=== PATIENT | male | born 1945 | race Caucasian/White ===

== ENCOUNTER 2017-08-12 22:08 | Observation (INO) | payer BC, MEDICARE ==
[~2017-08-12] VITALS: Ht 185.4 cm; Wt 104.4 kg
[2017-08-12] VITALS (8 sets, daily range): BP systolic 105–165; BP diastolic 65–95; PULSE 56–81; RESP 16; TEMP 98.2; O2SAT 99–100
[~2017-08-12 22:08] MED LIST: ALLO300T2 PO; APIX5TAB PO; ATOR20TA PO; DAPA5TAB PO; GLUCTAB PO; PANT20 PO; PIND5 PO
[2017-08-12] MEDS ORDERED: ATOR20TA15 PO (22:24)
[2017-08-12] MEDS ORDERED: PIND5 PO (22:24)
[2017-08-12] MEDS ORDERED: PANT20 PO (22:24)
[2017-08-12] MEDS ORDERED: ALLO300T2 PO (22:24)
[2017-08-12] MEDS ORDERED: DAPA1TAB PO (22:24)
[2017-08-12] MEDS ORDERED: APIX5TAB PO (22:24)
[2017-08-12] MEDS ORDERED: METF-382 PO (22:24)
[2017-08-12] MEDS ORDERED: SODIUM CHLORIDE 0.9% FLUSH 10 ML FLUSH IVF PRN (22:30)
[2017-08-12] MEDS: SODIUM CHLOR 0.9% 1000 ML INJ 1,000 ML IV SCH (22:30)
--- NOTE | 2017-08-12 22:34 | PD ---
HPI Chief Complaint: Chest Pain Time Seen by Provider: 22:22 Travel History International Travel<30 days: No Contact w/Intl Traveler<30days: No Traveled to known affect area: No History of Present Illness HPI 72-year-old male presents to the emergency department complaint of retrosternal chest pain radiating into his back for the past 1-1/2 hours. Patient has history of reflux esophagitis and used antacid without symptom relief. Symptoms began approximate 2 hours after eating [place]ian food. Patient denies known history of peptic ulcer disease gastritis pancreatitis or gallbladder disease. Patient does have history of atrial fibrillation and is prescribed Eliquis which he takes daily. Patient did not take aspirin prior to arrival to the emergency department. Patient is under the care of shotgun shell assembly machine adjuster Dr. Cobos. Patient had a cardiac catheterization 6 years ago that reportedly was normal and no significant coronary vessel disease. Patient's had no stress testing since that time. No prior history of retrosternal chest pain. Patient does note that chest pressure is worsened by taking a deep breath. At rest or taking shallow breaths chest pain is 5-6/10 intensity increases 8/10 intensity with deep breathing. Patient denies any shortness of breath sweats nausea vomiting or referred neck jaw back shoulder arm pain. Patient has had a CT of the abdomen pelvis in two years and denies any known aortic disease. Patient does have family history of heart disease with his father having heart attack and stents prior to passing away from cancer at age 58. Patient denies tobacco use. Patient does have history of diabetes and dyslipidemia denies known history of hypertension. PFSH Past Medical History Narrative Medical Atrial fibrillation on Eliquis, dyslipidemia diabetes GERD; family history CAD; no tobacco use; nursing notes reviewed Atrial Fibrillation: Yes Blood Disorders: No Cancer: No Cardiovascular Problems: Yes High Cholesterol: Yes Diabetes: Yes Diminished Hearing: No Endocrine: No Gastrointestinal Disorders: Yes GERD: Yes Genitourinary: No Headaches: Yes (CURRENT - ? DUE TO NITRO) Immune Disorder: No Inguinal Hernia: Yes (RT INGUINAL HERNIA) Implanted Vascular Access Dvce: No Musculoskeletal: No Neurologic: No Psychiatric: No Respiratory: No Integumentary: Yes (PSORIASIS) ?: Not Past Surgical History Abdominal Surgery: Yes (RT INGUINAL HERNIA) Other Surgery: Yes (and oriented) Social History Alcohol Use: Yes (occas) Tobacco Use: No Substance Use: No Allergies-Medications (Allergen,Severity, Reaction): Coded Allergies: No Known Allergies (Verified Allergy, Unknown, 08/13/17) Reported Meds & Prescriptions Reported Meds & Active Scripts Active Reported Pindolol 5 Mg Tab 5 Mg PO DAILY Protonix (Pantoprazole Sodium) 20 Mg Tab 20 Mg PO DAILY Metformin ER (Metformin HCl) 1,000 Mg Nikko 1,000 Mg PO DAILY With evening meal Farxiga (Dapagliflozin) 5 Mg Tab 5 Mg PO DAILY Atorvastatin (Atorvastatin Calcium) 20 Mg Tab 20 Mg PO HS Eliquis (Apixaban) 5 Mg Tab 5 Mg PO BID Allopurinol 300 Mg Tab 300 Mg PO DAILY Review of Systems Except as stated in HPI: all other systems reviewed are Neg General / Constitutional: No: Fever, Chills HENT: No: Congestion Cardiovascular: Positive: Chest Pain or Discomfort Respiratory: No: Cough, Shortness of Breath Gastrointestinal: No: Nausea, Vomiting, Abdominal Pain Genitourinary: No: Flank Pain Musculoskeletal: No: Myalgias, Arthralgias Skin: No Rash Neurologic: No: Weakness Psychiatric: No: Anxiety Hematologic/Lymphatic: No: Lymph Node Enlargement Physical Exam Narrative GENERAL: Well-developed well-nourished male no acute distress no respiratory distress SKIN: Warm and dry. HEAD: Normocephalic. EYES: No scleral icterus. No injection or drainage. NECK: Supple, trachea midline. No JVD or lymphadenopathy. CARDIOVASCULAR: Irregular rate and rhythm without murmurs, gallops, or rubs. RESPIRATORY: Breath sounds equal bilaterally. No accessory muscle use. GASTROINTESTINAL: Abdomen soft, non-tender, nondistended. MUSCULOSKELETAL: No cyanosis, or edema. BACK: Nontender without obvious deformity. No CVA tenderness. Data Data Last Documented VS Vital Signs Date Time Temp Pulse Resp B/P (MAP) Pulse Ox O2 Delivery O2 Flow Rate FiO2 08/13/17 02:06 74 16 106/69 (81) 99 Room Air 08/12/17 22:10 98.2 Orders Orders Electrocardiogram (08/12/17 22:22) Ckmb (Isoenzyme) Profile (08/12/17 22:22) Complete Blood Count With Diff (08/12/17 22:22) Comprehensive Metabolic Panel (08/12/17 22:22) Magnesium (Mg) (08/12/17 22:22) Prothrombin Time / Inr (Pt) (08/12/17 22:22) Act Partial Throm Time (Ptt) (08/12/17 22:22) Troponin I (08/12/17 22:22) Ecg Monitoring (08/12/17 22:22) Bilateral Bp Monitoring (08/12/17 22:22) Iv Access Insert/Monitor (08/12/17 22:22) Oximetry (08/12/17 22:22) Oxygen Administration (08/12/17 22:22) Sodium Chloride 0.9% Flush (Ns Flush) (08/12/17 22:30) Nitroglycerin Sl (Nitrostat Sl) (08/12/17 22:30) Chest, Pa & Lat (08/12/17 22:22) Sodium Chlor 0.9% 1000 Ml Inj (Ns 1000 M (08/12/17 22:30) CKMB (08/12/17 22:30) CKMB% (08/12/17 22:30) Cta Thor Abd Aorta W Iv C W3d (08/13/17 ) Iohexol 350 Inj (Omnipaque 350 Inj) (08/13/17 01:13) Troponin I (08/13/17 02:13) Ckmb (Isoenzyme) Profile (08/13/17 02:13) Electrocardiogram (08/13/17 ) Pantoprazole Inj (Protonix Inj) (08/13/17 02:15) Place In Observation (08/13/17 ) Vital Signs (Adult) Q4H (08/13/17 02:38) Activity Oob With Assistance (08/13/17 02:38) Bolt Labeler / Telemetry .CONTINUOUS (08/13/17 02:38) Diet Heart Healthy (08/13/17 Breakfast) Sodium Chloride 0.9% Flush (Ns Flush) (08/13/17 02:45) Sodium Chloride 0.9% Flush (Ns Flush) (08/13/17 09:00) Basic Metabolic Panel (Bmp) (08/14/17 06:00) Complete Blood Count With Diff (08/14/17 06:00) Creatine Kinase (Cpk) (08/13/17 04:30) Creatine Kinase (Cpk) (08/13/17 10:30) Troponin I (08/13/17 04:30) Troponin I (08/13/17 10:30) Electrocardiogram (08/13/17 04:30) Electrocardiogram (08/13/17 10:30) Pt Request For Service (08/13/17 02:38) Case Management Consult (08/13/17 02:38) Naloxone Inj (Narcan Inj) (08/13/17 02:45) Consult Cardiology (08/13/17 ) Admit Order (Ed Use Only) (08/13/17 ) Bolt Labeler / Telemetry GALILEA.Q8H (08/13/17 02:53) Activity Oob With Assistance (08/13/17 02:53) Notify Dr: Other (08/13/17 02:53) Labs Laboratory Tests Test 08/12/17 22:30 08/13/17 02:35 White Blood Count 13.1 TH/MM3 Red Blood Count 5.38 MIL/MM3 Hemoglobin 16.0 GM/DL Hematocrit 48.7 % Mean Corpuscular Volume 90.4 FL Mean Corpuscular Hemoglobin 29.8 PG Mean Corpuscular Hemoglobin Concent 32.9 % Red Cell Distribution Width 13.9 % Platelet Count 210 TH/MM3 Mean Platelet Volume 8.5 FL Neutrophils (%) (Auto) 63.4 % Lymphocytes (%) (Auto) 24.9 % Monocytes (%) (Auto) 8.5 % Eosinophils (%) (Auto) 2.2 % Basophils (%) (Auto) 1.0 % Neutrophils # (Auto) 8.3 TH/MM3 Lymphocytes # (Auto) 3.3 TH/MM3 Monocytes # (Auto) 1.1 TH/MM3 Eosinophils # (Auto) 0.3 TH/MM3 Basophils # (Auto) 0.1 TH/MM3 CBC Comment DIFF FINAL Differential Comment Prothrombin Time 10.8 SEC Prothromb Time International Ratio 1.1 RATIO Activated Partial Thromboplast Time 28.2 SEC Blood Urea Nitrogen 13 MG/DL Creatinine 0.94 MG/DL Random Glucose 104 MG/DL Total Protein 7.7 GM/DL Albumin 3.8 GM/DL Calcium Level 8.7 MG/DL Magnesium Level 1.9 MG/DL Alkaline Phosphatase 75 U/L Aspartate Amino Transf (AST/SGOT) 22 U/L Alanine Aminotransferase (ALT/SGPT) 27 U/L Total Bilirubin 0.4 MG/DL Sodium Level 139 MEQ/L Potassium Level 3.8 MEQ/L Chloride Level 103 MEQ/L Carbon Dioxide Level 28.9 MEQ/L Anion Gap 7 MEQ/L Estimat Glomerular Filtration Rate 79 ML/MIN Total Creatine Kinase 278 U/L Creatine Kinase MB 7.7 NG/ML Troponin I LESS THAN 0.02 NG/ML MDM Medical Decision Making Medical Screen Exam Complete: Yes Emergency Medical Condition: Yes Medical Record Reviewed: Yes Interpretation(s) Last Impressions Aorta CTA 08/13/17 0000 Signed Impressions: Service Date/Time: Sunday, August 13, 2017 00:33 - CONCLUSION: Negative CTA of the thoracic and abdominal aorta. Robert Ontiveros MD Chest X-Ray 08/12/172 Signed Impressions: Service Date/Time: Saturday, August 12, 2017 22:32 - CONCLUSION: 1. No active disease. Margarito Freedman MD CBC & BMP Diagram 08/12/17 22:30 Total Protein 7.7, Albumin 3.8, Calcium Level 8.7, Magnesium Level 1.9, Alkaline Phosphatase 75, Aspartate Amino Transf (AST/SGOT) 22, Alanine Aminotransferase (ALT/SGPT) 27, Total Bilirubin 0.4 EKG: Atrial fibrillation with controlled ventricular rate of [address] elevation nonspecific ST depression EKG #2: Atrial fibrillation rate [address] elevation injury pattern or ectopy noted Vital Signs Date Time Temp Pulse Resp B/P (MAP) Pulse Ox O2 Delivery O2 Flow Rate FiO2 08/13/17 02:06 74 16 106/69 (81) 99 Room Air 08/13/17 00:52 78 16 145/75 (98) 99 Room Air 08/12/17 23:35 79 16 109/69 (82) 105/66 (79) 08/12/17 23:32 79 16 129/70 (89) 99 Room Air 08/12/17 23:26 77 16 112/68 (83) 08/12/17 23:01 72 16 112/71 (85) 99 Room Air 08/12/17 22:48 56 16 120/65 (83) 99 Room Air 08/12/17 22:43 78 16 118/86 (97) 99 Room Air 08/12/17 22:20 81 99 Room Air 08/12/17 22:20 81 16 163/95 (117) 99 Room Air 148/94 (112) 08/12/17 22:10 98.2 81 16 165/93 (096) 100 Troponin I: Less than 0.02, not elevated CK: 278, not elevated CK-MB 7.7 elevated CK-MB percent 2.7% not elevated Differential Diagnosis Chest pain, ACS, MA, aortic dissection, esophageal spasm, biliary colic Narrative Course Patient placed on nurse monitoring with continuous pulse oximetry EKG performed shows atrial fibrillation without ST elevation a controlled ventricular rate; patient administered nitroglycerin; specimens collected and sent for resulting Patient administered sublingual nitroglycerin with minimal response given Zofran 4 mg IV and morphine sulfate 2 mg IV as well as 1 L normal saline Due to complain of retrosternal chest pain was sharp pain into the back mid scapular area CTA thoracic abdominal aorta performed no evidence for dissection no acute findings on CT thorax or abdomen pelvis Patient had brief nonsustained success run of V. tach; patient asymptomatic Case discussed with on-call medicine for observation admission serial cardiac enzymes and consult with patient's shotgun shell assembly machine adjuster Dr. Cobos Physician Communication Physician Communication discussed with DR Silva --OBS Diagnosis Primary Impression: Chest pain Additional Impressions: Controlled atrial fibrillation Non-sustained ventricular tachycardia Admitting Information Admitting Physician Requests: Observation Marley Maldonado MD Aug 12, 2017 22:34
[2017-08-12] MEDS: NITROGLYCERIN 0.4 MG SL 25 TABS/BTL SL SCH ×3 (22:40→23:23)
[2017-08-12 22:44] LABS: AUTOMATED NEUTROPHIL # 8.3 TH/MM3 (1.8-7.7); BASOPHIL # 0.1 TH/MM3 (0-0.2); EOSINOPHIL # 0.3 TH/MM3 (0-0.4); EOSINOPHIL % 2.2 % (0.0-4.0); HEMATOCRIT 48.7 % (39.0-51.0); LYMPH % 24.9 % (9.0-44.0); LYMPHOCYTE # 3.3 TH/MM3 (1.0-4.8); MEAN CELL VOLUME 90.4 FL (80.0-100.0); MEAN CORPUSCULAR HEMOGLOBIN 29.8 PG (27.0-34.0); MEAN CORPUSCULAR HGB CONC 32.9 % (32.0-36.0); MEAN PLATELET VOLUME 8.5 FL (7.0-11.0); MONO % 8.5 % (0.0-8.0); MONOCYTE # 1.1 TH/MM3 (0-0.9); NEUT % 63.4 % (16.0-70.0); PLATELET COUNT 210 TH/MM3 (150-450); RED BLOOD COUNT 5.38 MIL/MM3 (4.50-5.90); RED CELL DISTRIBUTION WIDTH 13.9 % (11.6-17.2); WHITE BLOOD COUNT 13.1 TH/MM3 (4.0-11.0)
--- NOTE | 2017-08-12 22:57 | RADRPT ---
EXAM DATE/TIME: 08/12/2017 22:32 [facility] COMPARISON: No previous studies available for comparison. INDICATIONS : Chest pain. MEDICAL HISTORY : Atrial fibrillation. SURGICAL HISTORY : Cardiac catheterization. ENCOUNTER: Initial ACUITY: 1 day PAIN SCORE: 5/10 LOCATION: chest substernal. FINDINGS: PA and lateral views of the chest demonstrate the lungs to be symmetrically aerated without evidence of mass, infiltrate or effusion. The cardiomediastinal contours are unremarkable. Osseous structure s are intact. CONCLUSION: 1. No active disease. Margarito Freedman MD on August 12, 2017 at 22:54 Board Certified Radiologist. This report was verified electronically.
[2017-08-12 22:59] LABS: CHLORIDE 103 MEQ/L (98-107); SODIUM (NA) 139 MEQ/L (136-145)
[2017-08-12 23:02] LABS: ALBUMIN 3.8 GM/DL (3.4-5.0); BICARBONATE 28.9 MEQ/L (21.0-32.0); CALCIUM 8.7 MG/DL (8.5-10.1); GLUCOSE,RANDOM 104 MG/DL (74-106); MAGNESIUM 1.9 MG/DL (1.5-2.5)
[2017-08-12 23:03] LABS: BLOOD UREA NITROGEN 13 MG/DL (7-18); INTERNATIONAL NORMALIZED RATIO 1.1 RATIO; PROTHROMBIN TIME - PATIENT 10.8 SEC (9.8-11.6)
[2017-08-12 23:05] LABS: ALT (GPT) 27 U/L (12-78)
[2017-08-12 23:06] LABS: AST (GOT) 22 U/L (15-37); CREATININE 0.94 MG/DL (0.60-1.30); GLOMERULAR FILTRATION RATE 79 ML/MIN (>89)
[2017-08-12 23:07] LABS: TOTAL BILIRUBIN ADULT 0.4 MG/DL (0.2-1.0); TOTAL PROTEIN 7.7 GM/DL (6.4-8.2)
[2017-08-12 23:08] LABS: ALKALINE PHOSPHATASE 75 U/L (45-117)
[2017-08-12 23:11] LABS: TROPONIN I LESS THAN 0.02 NG/ML (0.02-0.05)
[2017-08-13 00:52] VITALS: BP 145/75; PULSE 78; RESP 16; O2SAT 99
[2017-08-13] MEDS ORDERED: IOHEXOL 350 MG/ML 10 ML VIAL (for RAD DIAG) IVCONTRAST ONE (01:13)
--- NOTE | 2017-08-13 01:54 | RADRPT ---
EXAM DATE/TIME: 08/13/2017 00:33 [facility] COMPARISON: No previous studies available for comparison. INDICATIONS : Retrosternal chest pain. IV CONTRAST: 100 cc Omnipaque 350 (iohexol) IV RADIATION DOSE: 22.58 CTDIvol (mGy) MEDICAL HISTORY : Cardiovascular disease. Gastroesophageal reflux disease. SURGICAL HISTORY : Inguinal hernia repair. ENCOUNTER: Initial ACUITY: 1 day PAIN SCALE: 5/10 LOCATION: chest TECHNIQUE: Volumetric scanning was performed using a multi-row detector CT scanner. The data was post processed with a variety of visualization algorithms including full volume maximum intensity projection, multi -planar sliding thin slab reformation, curved planar reformation, and surface rendering techniques. Using automated exposure control and adjustment of the mA and/or kV according to patient size, radiat ion dose was kept as low as reasonably achievable to obtain optimal diagnostic quality images. DICOM format image data is available electronically for review and comparison. FINDINGS: LUNGS: There is no consolidation or pneumothorax. No concerning pulmonary nodule is visualized. No pleural fluid is present. MEDIASTINUM: No abnormally enlarged lymph nodes by CT criteria. No axillary or hilar abnormalities are identified. ABDOMEN: The liver and spleen are free of focal defects. The gallbladder and pancreas demonstrate no abnormali ty. The adrenal glands are normal. The kidneys demonstrate no evidence of solid renal mass or hydrone phrosis. No free fluid or abdominal masses are identified. No para-aortic adenopathy is seen. PELVIS: No evidence of free fluid or pelvic mass. No abnormally enlarged inguinal or retroperitoneal lymph no juan manuel are present. The bladder is unremarkable. THORACIC AORTA: The thoracic aortic root is normal with normal branching of the great vessels. There is no evidence of aneurysm or dissection. ABDOMINAL AORTA: The aorta is normal in caliber without aneurysm or dissection. The renal arteries are patent bilater ally. The proximal celiac and superior mesenteric arteries are patent and normal in diameter. PELVIC VESSELS: The internal iliac and external iliac vessels are patent without aneurysm or stenosis. CONCLUSION: Negative CTA of the thoracic and abdominal aorta. Robert Ontiveros MD on August 13, 2017 at 1:50 Board Certified Radiologist. This report was verified electronically.
[2017-08-13 02:06] VITALS: BP 106/69; PULSE 74; RESP 16; O2SAT 99
[2017-08-13] MEDS ORDERED: PANTOPRAZOLE SODIUM 40 MG VIAL IV PUSH ONE (02:15)
[2017-08-13] MEDS: SODIUM CHLOR 0.9% 1000 ML INJ 1,000 ML IV SCH (02:33)
[2017-08-13] MEDS ORDERED: SODIUM CHLORIDE 0.9% FLUSH 10 ML FLUSH IV FLUSH PRN (02:45)
[2017-08-13] MEDS ORDERED: NALOXONE HCL 0.4 MG/ML AMP IV PUSH PRN (02:45)
[2017-08-13 03:15] LABS: TROPONIN I LESS THAN 0.02 NG/ML (0.02-0.05)
[2017-08-13 04:32] VITALS: BP 123/76; PULSE 91; RESP 18; TEMP 97.4; O2SAT 96
[2017-08-13 06:05] LABS: TROPONIN I LESS THAN 0.02 NG/ML (0.02-0.05)
[2017-08-13 08:00] VITALS: BP 131/82; PULSE 100; RESP 18; TEMP 96.5; O2SAT 94
--- NOTE | 2017-08-13 08:19 | HHI.HP ---
HPI Service [facility] Primary Care Physician Non-Staff Admission Diagnosis Chest pain; h/o afib; non-sustained v-tach Diagnoses: (1) Chest pain Chief Complaint: Chest pain Travel History International Travel<30 Days: No Contact w/Intl Traveler <30 Da: No Traveled to Known Affected Are: No History of Present Illness This is a pleasant 72-year-old male patient with a known medical history of atrial fibrillation on Eliquis, dyslipidemia, diabetes and GERD who presented to the ED with complaints of chest pain. Patient states that last evening he had spicy [place] food and shortly after he developed a midsternal chest pain. He states the pain was aching in nature, denies any radiation of pain, rates the pain a 5 out of 10 on pain scale, does admit to shortness of breath with deep breathing worsening the pain. Patient denies any nausea or vomiting or diaphoresis. Patient does admit to history of GERD and takes a daily Protonix. Patient does follow with PCP and Dr. Montanez, cardiology. Patient underwent a cardiac catheterization 6 years ago which was reportedly negative. He denies having any recent stress test since then. Chest x-ray upon presentation was negative. Troponins are flat. Aorta CTA negative. Dr. Bhat, cardiology has seen patient this morning and reviewed records it has cleared patient for discharge. He states that this chest pain is most likely related to his GERD and does not recommend a cardiac stress test. At the time of assessment patient's pain has resolved, lying in bed comfortably in no apparent distress. Review of Systems Constitutional: DENIES: Fatigue, Fever, Chills Eyes: DENIES: Blurred vision, Diplopia Respiratory: DENIES: Cough Cardiovascular: COMPLAINS OF: Chest pain, DENIES: Palpitations Gastrointestinal: COMPLAINS OF: Abdominal pain, DENIES: Black stools, Bloody stools, Constipation, Diarrhea, Nausea, Vomiting Neurologic: DENIES: Abnormal gait Psychiatric: DENIES: Anxiety Except as stated in HPI: all other systems reviewed are Neg Past Family Social History Past Medical History Atrial fibrillation on Eliquis Dyslipidemia Diabetes GERD Psoriasis Past Surgical History Right inguinal hernia repair Cardiac catheterization 6 years ago Reported Medications Reported Meds & Active Scripts Active Reported Pindolol 5 Mg Tab 5 Mg PO DAILY Protonix (Pantoprazole Sodium) 20 Mg Tab 20 Mg PO DAILY Metformin ER (Metformin HCl) 1,000 Mg Nikko 1,000 Mg PO DAILY With evening meal Farxiga (Dapagliflozin) 5 Mg Tab 5 Mg PO DAILY Atorvastatin (Atorvastatin Calcium) 20 Mg Tab 20 Mg PO HS Eliquis (Apixaban) 5 Mg Tab 5 Mg PO BID Allopurinol 300 Mg Tab 300 Mg PO DAILY Allergies: Coded Allergies: No Known Allergies (Verified Allergy, Unknown, 08/13/17) Active Ordered Medications Current Medications Medications (Trade) Dose Ordered Sig/Latonya Route Start Time Stop Time Status Last Admin Sodium Chloride 1,000 ml @ 100 mls/hr Q10H IV 08/12/17 22:30 08/13/17 02:33 (NS Flush) 2 ml UNSCH PRN IV FLUSH 08/13/17 02:45 (NS Flush) 2 ml BID IV FLUSH 08/13/17 09:00 (Narcan Inj) 0.4 mg UNSCH PRN IV PUSH 08/13/17 02:45 (Pneumovax-23 Inj) 25 mcg ONCE ONCE IM 08/14/17 09:00 08/14/17 09:01 Family History Father did have an IA at the age of 5858 years old. Social History Denies any current or previous tobacco use. Does admit to occasional alcohol use. Denies any illicit drug use. Physical Exam Vital Signs Vital Signs Date Time Temp Pulse Resp B/P (MAP) Pulse Ox O2 Delivery O2 Flow Rate FiO2 08/13/17 08:00 96.5 100 18 131/82 (98) 94 08/13/17 04:32 97.4 91 18 123/76 (92) 96 08/13/17 02:06 74 16 106/69 (81) 99 Room Air 08/13/17 00:52 78 16 145/75 (98) 99 Room Air 08/12/17 23:35 79 16 109/69 (82) 105/66 (79) 08/12/17 23:32 79 16 129/70 (89) 99 Room Air 08/12/17 23:26 77 16 112/68 (83) 08/12/17 23:01 72 16 112/71 (85) 99 Room Air 08/12/17 22:48 56 16 120/65 (83) 99 Room Air 08/12/17 22:43 78 16 118/86 (97) 99 Room Air 08/12/17 22:20 81 99 Room Air 08/12/17 22:20 81 16 163/95 (117) 99 Room Air 148/94 (112) 08/12/17 22:10 98.2 81 16 165/93 (117) 100 Physical Exam GENERAL: Well-developed, well-nourished patient in NAD. SKIN: Warm and dry. No rash. HEAD: Normocephalic. Atraumatic. EYES: Pupils equal and round. No scleral icterus. No injection or drainage. ENT: No nasal bleeding or discharge. Mucous membranes pink and moist. NECK: Supple. Trachea midline. CARDIOVASCULAR: Irregularly irregular rhythm. No murmur appreciated. No chest pain to palpation. RESPIRATORY: No accessory muscle use. Clear to auscultation. Breath sounds equal bilaterally. GASTROINTESTINAL: Abdomen soft, non-tender, nondistended. Normoactive bowel sounds x4. MUSCULOSKELETAL: No obvious deformities. Extremities without clubbing, cyanosis , or edema. NEUROLOGICAL: Awake and alert. No obvious cranial nerve deficits. Motor grossly within normal limits. 5/5 muscle strength in bilateral upper and lower extremities. Normal speech. PSYCHIATRIC: Appropriate mood and affect; insight and judgment normal. Laboratory Laboratory Tests Test 08/12/17 22:30 08/13/17 02:35 08/13/17 05:10 White Blood Count 13.1 Red Blood Count 5.38 Hemoglobin 16.0 Hematocrit 48.7 Mean Corpuscular Volume 90.4 Mean Corpuscular Hemoglobin 29.8 Mean Corpuscular Hemoglobin Concent 32.9 Red Cell Distribution Width 13.9 Platelet Count 210 Mean Platelet Volume 8.5 Neutrophils (%) (Auto) 63.4 Lymphocytes (%) (Auto) 24.9 Monocytes (%) (Auto) 8.5 Eosinophils (%) (Auto) 2.2 Basophils (%) (Auto) 1.0 Neutrophils # (Auto) 8.3 Lymphocytes # (Auto) 3.3 Monocytes # (Auto) 1.1 Eosinophils # (Auto) 0.3 Basophils # (Auto) 0.1 CBC Comment DIFF FINAL Differential Comment Prothrombin Time 10.8 Prothromb Time International Ratio 1.1 Activated Partial Thromboplast Time 28.2 Blood Urea Nitrogen 13 Creatinine 0.94 Random Glucose 104 Total Protein 7.7 Albumin 3.8 Calcium Level 8.7 Magnesium Level 1.9 Alkaline Phosphatase 75 Aspartate Amino Transf (AST/SGOT) 22 Alanine Aminotransferase (ALT/SGPT) 27 Total Bilirubin 0.4 Sodium Level 139 Potassium Level 3.8 Chloride Level 103 Carbon Dioxide Level 28.9 Anion Gap 7 Estimat Glomerular Filtration Rate 79 Total Creatine Kinase 278 206 179 Creatine Kinase MB 7.7 5.8 Troponin I LESS THAN 0.02 LESS THAN 0.02 LESS THAN 0.02 Result Diagram: 08/12/17222908/12/172229 Imaging Last Impressions Aorta CTA 08/13/17 0000 Signed Impressions: Service Date/Time: Sunday, August 13, 2017 00:33 - CONCLUSION: Negative CTA of the thoracic and abdominal aorta. Robert Ontiveros MD Chest X-Ray 08/12/172221 Signed Impressions: Service Date/Time: Saturday, August 12, 2017 22:32 - CONCLUSION: 1. No active disease. Margarito Freedman MD Septic Shock Reassessment Septic shock perfusion: reassessment completed Caprini VTE Risk Assessment Caprini VTE Risk Assessment: Mod/High Risk (score >= 2) Caprini Risk Assessment Model Point Value = 1 Point Value = 2 Point Value = 3 Point Value = 5 Age 41-60 Minor surgery BMI > 25 kg/m2 Swollen legs Varicose veins or History of unexplained or recurrent spontaneous Oral contraceptives or hormone replacement Sepsis (< 1 month) Serious lung disease, including pneumonia (< 1 month) Abnormal pulmonary function Acute myocardial infarction Congestive heart failure (< 1 month) History of inflammatory bowel disease Medical patient at bed rest Age 61-74 Arthroscopic surgery Major open surgery (> 45 min) Laparoscopic surgery (> 45 min) Malignancy Confined to bed (> 72 hours) Immobilizing plaster cast Central venous access Age >= 75 History of VTE Family history of VTE Factor V Leiden Prothrombin [id number] Lupus anticoagulant Anticardiolipin antibodies Elevated serum homocysteine Heparin-induced thrombocytopenia Other congenital or acquired thrombophilia Stroke (< 1 month) Elective arthroplasty Hip, pelvis, or leg fracture Acute spinal cord injury (< 1 month) Prophylaxis Regimen Total Risk Factor Score Risk Level Prophylaxis Regimen 0-1 Low Early ambulation 2 Moderate Order ONE of the following: *Sequential Compression Device (SCD) *Heparin 5000 units SQ BID 3-4 Higher Order ONE of the following medications: *Heparin 5000 units SQ TID *Enoxaparin/Lovenox 40 mg SQ daily (WT < 150 kg, CrCl > 30 mL/min) *Enoxaparin/Lovenox 30 mg SQ daily (WT < 150 kg, CrCl > 10-29 mL/min) *Enoxaparin/Lovenox 30 mg SQ BID (WT < 150 kg, CrCl > 30 mL/min) AND/OR *Sequential Compression Device (SCD) 5 or more Highest Order ONE of the following medications: *Heparin 5000 units SQ TID (Preferred with Epidurals) *Enoxaparin/Lovenox 40 mg SQ daily (WT < 150 kg, CrCl > 30 mL/min) *Enoxaparin/Lovenox 30 mg SQ daily (WT < 150 kg, CrCl > 10-29 mL/min) *Enoxaparin/Lovenox 30 mg SQ BID (WT < 150 kg, CrCl > 30 mL/min) AND *Sequential Compression Device (SCD) Assessment and Plan Problem List: (1) Chest pain ICD Code: R07.9 - Chest pain, unspecified Status: Acute Plan: Patient has been admitted to the chest pain center for observation. Serial troponins and serial EKGs have been performed, troponins are flat. EKG reviewed showing controlled atrial fibrillation. Patient is already on Eliquis. Chest pain has now resolved. Vital signs are stable. Dr. Bhat, cardiology has seen patient this morning which thinks chest pain is related to GERD. Pain was resolved with GI medications. Aorta CTA reviewed and negative. CXR reviewed showing no active disease. Cardiology does not recommend further stress testing or cardiac workup. Will advise patient to follow-up with roller maker in the outpatient setting. If chest pain persists or worsens patient is encouraged to come back to the ER for further evaluation. Patient is stable at this time and agreeable to the plan. (2) Controlled atrial fibrillation ICD Code: I48.91 - Unspecified atrial fibrillation Status: Acute Plan: Patient is continued on Eliquis. Cardiac telemetry reviewed overnight, controlled atrial fibrillation. There were reports of V. tach in the ED. Spoke to Dr. Bhat about this, there are no strips to prove this. Patient was reportedly asymptomatic at the time. Cardiology does not recommend further workup. Patient should just be continued on home medications and follow-up with PCP and roller maker. Assessment and Plan Patient will be discharged home. All symptoms are resolved. Follow-up PCP and roller maker. Continue medications as indicated. Delicia Glass Aug 13, 2017 08:19
--- NOTE | 2017-08-13 08:30 | HHI.DCPOC ---
Discharge Care Plan Diagnosis: (1) Chest pain (2) Controlled atrial fibrillation Goals to Promote Your Health * To prevent worsening of your condition and complications * To maintain your health at the optimal level Directions to Meet Your Goals Take your medications as prescribed Follow your dietary instruction Follow activity as directed Keep your appointments as scheduled Take your immunizations and boosters as scheduled If your symptoms worsen call your PCP, if no PCP go to Urgent Care Center or Emergency Room Smoking is Dangerous to Your Health. Avoid second hand smoke Call the 24-hour hour crisis hotline for domestic abuse at Delicia Glass Aug 13, 2017 08:30
--- NOTE | 2017-08-13 08:56 | MB ---
cc: Chano Bhat MD, Kim A MD DATE OF CONSULT: 08/13/2017 Cc: Dr. Shelton Connors The patient's office and hospital records have been reviewed. HISTORY OF PRESENT ILLNESS: The patient is a pleasant 72-year-old gentleman followed by my partner, Dr. Temi Cobos, for atrial fibrillation/flutter. This is asymptomatic in the patient and he is chronically anticoagulated for this. Catheterization in 2008 showed no significant coronary artery disease. The patient for dinner yesterday ate spicy [place] food. Approximately 30 minutes afterwards he developed substernal aching which he also felt in his back. This got a little worse when he took a deep breath, but did not go away. It did not radiate and there were no associated symptoms. It has persisted since then, although it is better now. The patient has a history of reflux esophagitis with esophageal stricture in the past with dilatation. He is followed by Dr. Forte. He is active and has no cardiopulmonary symptoms otherwise. PAST MEDICAL HISTORY: 1. Cardiac as above. 2. Diabetes. 3. Esophageal as above. 4. Hyperlipidemia. 5. Vasovagal syncope in the distant past, although this was more or a lightheadedness when he had blood drawn. 6. Right inguinal hernia repair. ALLERGIES: NONE. FAMILY HISTORY: Remarkable for father who of cancer at 58, but supposedly had had MIs. MEDICATIONS PRIOR TO ADMISSION: 1. Eliquis. 2. Farxiga. 3. Lipitor. 4. Metformin. 5. Pindolol. 4. Protonix. SOCIAL HISTORY: He is and works for [employer]. He never smoked and minimally drinks. REVIEW OF SYSTEMS: EARS: Remarkable for mild hearing loss. GASTROINTESTINAL: Symptoms as above and an intentional 45-50 pound weight loss FINDINGS: I do not see an EKG in the computer, although supposedly EKGs, according to the emergency room note, showed atrial fibrillation with controlled rate, but no acute changes. Chest x-ray showed no active disease. Aorta CT angiogram was negative for thoracic aorta aneurysm or dissection. LABORATORY DATA: White count minimally elevated at 13.1. PT, PTT normal. Potassium 3.8, creatinine 0.94, glucose 104. Troponin negative x3. Liver functions normal. PHYSICAL EXAMINATION: GENERAL: He is alert and oriented x3. HEENT: There are no xanthelasma and oropharyngeal mucosa normal. CHEST: Without deformities and clear. CARDIOVASCULAR: JVD normal. There is an irregular rhythm. S1, S2. No murmurs or gallops. ABDOMEN: Benign. EXTREMITIES: Show no cyanosis, clubbing, or edema. Pulses 2/2 throughout without bruits with 1+ pedal pulses. NEUROLOGIC: He is not ambulated. PROBLEMS: 1. Chest discomfort - The patient has had 12 hours of discomfort which occurred after eating spicy food. He has a history of esophagitis with stricture and this clearly appears to be related to that. It is unlikely to be pulmonary embolus as he is fully anticoagulated and troponins are all negative so far. 2. Hyperlipidemia. 3. Atrial fibrillation. 4. Diabetes. RECOMMENDATIONS: 1. I would continue home medications. 2. Certainly would try to track down EKGs as they are not available at this point in time. 3. The patient needs to be continued on home medications. 4. No further cardiac workup. 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 5. Low cholesterol diet. 6. All questions have been answered. MD CATHY Moise/SB , 06:48 AM , 08:54 AM
[2017-08-13] MEDS ORDERED: DAPAGLIFLOZIN 5 MG PO SCH (09:00)
[2017-08-13] MEDS ORDERED: PANTOPRAZOLE SOD 20 MG DELAYED RELEASE TAB PO SCH (09:00)
[2017-08-13] MEDS ORDERED: metFORMIN HCL 500 MG TAB PO SCH (09:00)
[2017-08-13] MEDS ORDERED: SODIUM CHLORIDE 0.9% FLUSH 10 ML FLUSH IV FLUSH SCH (09:00)
[2017-08-13] MEDS ORDERED: PINDOLOL 5 MG TAB PO SCH (09:00)
[2017-08-13] MEDS ORDERED: APIXABAN 5 MG TABLET PO SCH (09:00)
[2017-08-13] MEDS ORDERED: ALLOPURINOL 300 MG TAB PO SCH (09:00)
--- NOTE | 2017-08-13 14:53 | EKG ---
Date Performed: 08/13/2017 Time Performed: 06:46:44 PTAGE: 72 years EKG: ATRIAL FIBRILLATION ABNORMAL RHYTHM ECG PREVIOUS TRACING : 08/13/2017 02.26 No significant change from previous tracing noted. DOCTOR: Sander Camarena Interpretating Date/Time 08/13/2017 14:52:06
--- NOTE | 2017-08-13 14:56 | EKG ---
Date Performed: 08/13/2017 Time Performed: 02:26:38 PTAGE: 72 years EKG: ATRIAL FIBRILLATION ABNORMAL RHYTHM ECG PREVIOUS TRACING : 08/12/2017 22.11 No significant change from previous tracing noted. DOCTOR: Sander Camarena Interpretating Date/Time 08/13/2017 14:55:16
--- NOTE | 2017-08-13 14:58 | EKG ---
Date Performed: 08/12/2017 Time Performed: 22:11:57 PTAGE: 72 years EKG: ATRIAL FIBRILLATION NONSPECIFIC ST DEPRESSION ABNORMAL ECG PREVIOUS TRACING : 07/23/2015 14.01 No significant change from previous tracing noted. DOCTOR: Sander Camarena Interpretating Date/Time 08/13/2017 14:57:30
[2017-08-13] MEDS ORDERED: ATORVASTATIN 20 MG TAB PO SCH (21:00)
[2017-08-14] MEDS ORDERED: PNEUMOCOCCAL POLYVALENT INJ 25 MCG/0.5 ML SYR IM ONE (09:00)
== END 2017-08-13 09:37 | disposition home or self-care (01) ==
LOC: PHED 22:08 → PHEDA 08-13 02:55 → PH3A 08-13 04:06
PROVIDERS: ADMIT Hospitalist; ATTEND Hospitalist
DX: R07.9 Chest pain, unspecified (principal); I48.91 Unspecified atrial fibrillation; I47.2 Ventricular tachycardia; R94.31 Abnormal electrocardiogram [ECG] [EKG]; E78.00 Pure hypercholesterolemia, unspecified; E11.9 Type 2 diabetes mellitus without complications; K21.9 Gastro-esophageal reflux disease without esophagitis; L40.9 Psoriasis, unspecified; H91.90 Unspecified hearing loss, unspecified ear; Z79.899 Other long term (current) drug therapy; Z79.01 Long term (current) use of anticoagulants; Z82.49 Family history of ischemic heart disease and other diseases of the circulatory system
CPT/HCPCS: 71046; 71275; 74174; 80053; 82550; 82552; 83735; 84484; 85025; 85610; 85730; 93005; 96361; 96374; 97161; 99285; C9113; G0378; G8987; G8988; J7030; Q9967